=== PATIENT | male | born 1955 | race American Indian/Alaskan Native ===

== ENCOUNTER 2021-06-25 11:23 | Outpatient (CLI) | payer MEDICAID ==
[2021-06-25] MEDS ORDERED: LIDOCAINE (4%) 40 MG/ML TOPICAL SOLN 50 ML BOTTLE TP ONE (11:37)
[2021-06-25] MEDS ORDERED: SILVER NITRATE APPLICATOR 1 EA TP ONE (11:47)
== END 2021-06-25 11:24 | disposition home or self-care (01) ==
LOC: WOUND 11:23
PROVIDERS: ATTEND Surgery
DX: L02.214 Cutaneous abscess of groin (principal); S71.101A Unspecified open wound, right thigh, initial encounter; E08.628 Diabetes mellitus due to underlying condition with other skin complications; I10 Essential (primary) hypertension; E66.09 Other obesity due to excess calories; Z79.84 Long term (current) use of oral hypoglycemic drugs; Z79.82 Long term (current) use of aspirin; Z68.31 Body mass index [BMI] 31.0-31.9, adult; X58.XXXA Exposure to other specified factors, initial encounter; Y93.89 Activity, other specified; Y92.89 Other specified places as the place of occurrence of the external cause; Y99.8 Other external cause status
CPT/HCPCS: 17250

== ENCOUNTER 2021-07-09 10:43 | Outpatient (CLI) | payer MEDICAID ==
[2021-07-09] MEDS ORDERED: LIDOCAINE (4%) 40 MG/ML TOPICAL SOLN 50 ML BOTTLE TP ONE (11:04)
[2021-07-09] MEDS ORDERED: SILVER NITRATE APPLICATOR 1 EA TP ONE (11:17)
== END 2021-07-09 10:44 | disposition home or self-care (01) ==
LOC: WOUND 10:43
PROVIDERS: ATTEND Surgery
DX: L02.214 Cutaneous abscess of groin (principal); S71.101D Unspecified open wound, right thigh, subsequent encounter; E08.628 Diabetes mellitus due to underlying condition with other skin complications; I10 Essential (primary) hypertension; E66.09 Other obesity due to excess calories; Z79.84 Long term (current) use of oral hypoglycemic drugs; Z79.82 Long term (current) use of aspirin; Z68.31 Body mass index [BMI] 31.0-31.9, adult; X58.XXXD Exposure to other specified factors, subsequent encounter
CPT/HCPCS: 17250

== ENCOUNTER 2021-07-23 10:19 | Outpatient (CLI) | payer MEDICAID ==
[2021-07-23] MEDS ORDERED: LIDOCAINE (4%) 40 MG/ML TOPICAL SOLN 50 ML BOTTLE TP ONE (12:43)
== END 2021-07-23 10:20 | disposition home or self-care (01) ==
LOC: WOUND 10:19
PROVIDERS: ATTEND Surgery
DX: L02.214 Cutaneous abscess of groin (principal); S71.101D Unspecified open wound, right thigh, subsequent encounter; E11.628 Type 2 diabetes mellitus with other skin complications; I10 Essential (primary) hypertension; E66.09 Other obesity due to excess calories; Z79.84 Long term (current) use of oral hypoglycemic drugs; Z79.82 Long term (current) use of aspirin; Z68.31 Body mass index [BMI] 31.0-31.9, adult; X58.XXXD Exposure to other specified factors, subsequent encounter
CPT/HCPCS: 17250; G0463; 99212; 99213